=== PATIENT | male | born 1980 | race Caucasian/White ===

== ENCOUNTER 2021-01-19 02:38 | Emergency (ER) | payer OTHER ==
[~2021-01-19] VITALS: Ht 188 cm; Wt 111.1 kg
[2021-01-19] MEDS ORDERED: HYDROCODON-ACE1 EAC8 PO (03:10)
[2021-01-19] MEDS ORDERED: OCUFLOX5 ML OTIC (03:10)
[2021-01-19 03:20] VITALS: BP 151/93
== END 2021-01-19 03:22 | disposition home or self-care (01) ==
LOC: M.ERS 02:38
DX: H66.92 Otitis media, unspecified, left ear (principal)